=== PATIENT | female | born 1965 | race Caucasian/White ===

== ENCOUNTER 2017-03-11 13:53 | Emergency (ER) | payer MEDICAID ==
[2017-03-11 19:34] VITALS: BMI 22.8
--- NOTE | 2017-03-11 19:38 | ED PDOC ---
Upper Extremity Pain/Injury Time Seen by Provider: 03/11/17 14:00 Chief Complaint (Provider): Finger pain History Per: Patient History/Exam Limitations: no limitations Onset/Duration Of Symptoms: Days (2) Current Symptoms Are (Timing): Still Present Quality: "Pain" Additional Complaint(s): Shar Phan is a 51 y/o female presenting to the ER on 03/11/2017 with complaints of pain in her right finger onset 2 days. Patient states she was walking down a flight of stairs when she hit her finger on a guardrail. Reports exacerbation of pain since onset, prompting medical evaluation today. Pain was initially localized in the fifth digit but has radiated to her elbow. She did not take any pain medications prior to arrival. Past Medical History Reviewed: Historical Data, Nursing Documentation, Vital Signs - Medical History PMH: No Chronic Diseases - Surgical History Surgical History: No Surg Hx - Family History Family History: States: Unknown Family Hx - Home Medications Home Medications: Ambulatory Orders Medication Instructions Recorded Azithromycin [Zithromax] 250 mg PO DAILY #6 cap 09/29/14 Codeine Phos/Phenyleph HCl/P 5 ml PO Q6H #100 syr 09/29/14 [Phenergan Vc W/Codeine 120 ml] Acetaminophen/Hydrocodone Bi 1 tab PO QID PRN #10 tab 11/27/14 [Vicodin 300 mg-5 mg] - Allergies Allergies/Adverse Reactions: Allergies Allergy/AdvReac Type Severity Reaction Status Date / Time No Known Allergies Allergy Verified 09/29/14 09:10 Review of Systems ROS Statement: Except As Marked, All Systems Reviewed And Found Negative Musculoskeletal: Positive for: Hand Pain ((+) left finger ) Neurological: Negative for: Weakness, Numbness Physical Exam - Reviewed Nursing Documentation Reviewed: Yes Vital Signs Reviewed: Yes - Physical Exam Appears: Positive for: Non-toxic, No Acute Distress Head Exam: Positive for: ATRAUMATIC, NORMOCEPHALIC Skin: Positive for: Normal Color, Warm, Dry Eye Exam: Positive for: Normal appearance, EOMI, PERRL Neck: Positive for: Normal Extremity: Positive for: Normal ROM, Tenderness (mild tenderness to 5th DIP upon palpation. ), Swelling (Mild swelling to PIP) Neurologic/Psych: Positive for: Alert, Oriented. Negative for: Motor/Sensory Deficits Medical Decision Making Medical Decision Makin:00 Initial Impression- Right finger sprain Initial Plan- * XR Right Hand * Re-assess 15:11 XR reviewed, shows no acute findings. Splint was applied to the right fifth digit. Pt will be discharged routinely. Ecnouraged to schedule follow-up with PMD within 1-2 days. Advised to return if condition persists or worsens. Condition is stable for discharge Clinical Impression- Finger sprain Documented by Dejah Quinones, acting as a scribe for Claudia Rothman PA-C All medical record entries made by the Scribe were at my direction and personally dictated by me. I have reviewed the chart and agree that the record accurately reflects my personal performance of the history, physical exam, medical decision making, and the department course for this patient. I have also personally directed, reviewed, and agree with the discharge instructions and disposition.
--- NOTE | 2017-03-12 08:10 | RAD ---
PROCEDURE: Right 5th finger dated 03/11/2017 HISTORY: COMPARISON: Prior study available for comparison FINDINGS: BONES: No evidence of acute displaced fracture nor dislocation. The osseous structures appear intact. No cortical destructive changes. JOINTS: There appears be mild narrowing of the DIP joint along the palm are joint space margin SOFT TISSUES: Normal. OTHER FINDINGS: None. IMPRESSION: No evidence of acute displaced fracture nor dislocation right 5th finger
== END 2017-03-11 19:34 | disposition home or self-care (01) ==
LOC: H.EDDOWN 13:53
DX: S63.616A Unspecified sprain of right little finger, initial encounter (principal); W22.8XXA Striking against or struck by other objects, initial encounter; Y93.9 Activity, unspecified; Y92.9 Unspecified place or not applicable

== ENCOUNTER 2017-04-19 14:34 | Emergency (ER) | payer MEDICAID ==
[2017-04-19 14:34] VITALS: BMI 22.8
[2017-04-19 14:40] VITALS: RESP 20; TEMP 99; O2SAT 100
--- NOTE | 2017-04-19 14:58 | ED PDOC ---
Lower Extremity Pain/Injury Time Seen by Provider: 04/19/17 14:45 Chief Complaint (Nursing): Abnormal Skin Integrity Chief Complaint (Provider): Wound check History Per: Patient History/Exam Limitations: no limitations Onset/Duration Of Symptoms: Days (1x) Current Symptoms Are (Timing): Still Present Severity: Moderate Additional Complaint(s): 51 year old female with no pertinent medical history presents to the ED with complaints of a right lower extremity injury that occurred last night (20x hours prior to arrival). She reports that she was outside, and a piece of glass from the garbage cut her right thigh. She reports that she did not present to the ED after the injury because she did not want to come alone, but today the area "feels hot" and notes pain along wound. Patient denies having fevers, chills, and any other medical complaints. Patient's tetanus immunization is up to date. PMD: not provided. Past Medical History Reviewed: Historical Data, Nursing Documentation, Vital Signs Vital Signs: Last Vital Signs Temp 99 F 04/19/17 14:38 Pulse 92 H 04/19/17 14:38 Resp 20 04/19/17 14:38 BP 126/93 H 04/19/17 14:38 Pulse Ox 100 04/19/17 14:38 - Medical History PMH: No Chronic Diseases - Surgical History Surgical History: No Surg Hx - Family History Family History: States: Unknown Family Hx - Social History Alcohol: None Drugs: Denies - Immunization History Hx Tetanus Toxoid Vaccination: Yes (january 2017) - Home Medications Home Medications: Ambulatory Orders Medication Instructions Recorded Azithromycin [Zithromax] 250 mg PO DAILY #6 cap 09/29/14 Codeine Phos/Phenyleph HCl/P 5 ml PO Q6H #100 syr 09/29/14 [Phenergan Vc W/Codeine 120 ml] Acetaminophen/Hydrocodone Bi 1 tab PO QID PRN #10 tab 11/27/14 [Vicodin 300 mg-5 mg] Bacitracin Ointment [Bacitracin] 0.5 gm TOP BID #1 tube 04/19/17 Cephalexin [Keflex] 500 mg PO QID #20 cap 04/19/17 Ibuprofen [Motrin] 600 mg PO Q8 PRN #15 tab 04/19/17 - Allergies Allergies/Adverse Reactions: Allergies Allergy/AdvReac Type Severity Reaction Status Date / Time No Known Allergies Allergy Verified 09/29/14 09:10 Review of Systems Constitutional: Negative for: Fever, Chills Musculoskeletal: Positive for: Leg Pain (pain along wound on leg. patient states the area feels "hot") Physical Exam - Reviewed Nursing Documentation Reviewed: Yes Vital Signs Reviewed: Yes - Physical Exam Appears: Positive for: Well, Non-toxic, No Acute Distress Head Exam: Positive for: ATRAUMATIC, NORMOCEPHALIC Skin: Positive for: Normal Color, Warm, Dry Cardiovascular/Chest: Positive for: Regular Rate, Rhythm Respiratory: Positive for: Normal Breath Sounds. Negative for: Respiratory Distress Rectal: Positive for: Other (3cm superficial laceration on right anterior thigh. no signs of infection.) Neurologic/Psych: Positive for: Alert, Oriented (3x) - ECG O2 Sat by Pulse Oximetry: 100 (RA) Pulse Ox Interpretation: Normal Medical Decision Making Medical Decision Makin:45 Initial impression: 51 year old female with a right lower extremity injury. Plan: * wound cleaned with betadine and flushed with sterile water * Steri strips placed for wound approximation * keflex 500mg PO * advised patient to follow up with PMD in 2x days Scribe Attestation: Documented by Shabana Ferraro, acting as a scribe for Dennise Huerta PA-C. Provider Scribe Attestation: All medical record entries made by the Scribe were at my direction and personally dictated by me. I have reviewed the chart and agree that the record accurately reflects my personal performance of the history, physical exam, medical decision making, and the department course for this patient. I have also personally directed, reviewed, and agree with the discharge instructions and disposition. Disposition - Clinical Impression Clinical Impression: Laceration - Patient ED Disposition Is Patient to be Admitted: No - Disposition Referrals: [facility] [Outside] Disposition: Routine/Home Disposition Time: 15:41 Condition: FAIR Additional Instructions: FOLLOW UP WITH YOUR PMD OR ED IN 2 DAYS FOR WOUND EVALUATION. Prescriptions: Bacitracin Ointment [Bacitracin] 0.5 gm TOP BID #1 tube Cephalexin [Keflex] 500 mg PO QID #20 cap Ibuprofen [Motrin] 600 mg PO Q8 PRN #15 tab PRN Reason: Pain, Severe (8-10) Instructions: Acute Wound Care (ED), Steristrips (ED)
[2017-04-19 15:41] VITALS: BP 124/86; PULSE 83
== END 2017-04-19 15:41 | disposition home or self-care (01) ==
LOC: H.ER 14:34
DX: S81.801A Unspecified open wound, right lower leg, initial encounter (principal); W25.XXXA Contact with sharp glass, initial encounter

== ENCOUNTER 2017-04-21 14:11 | Emergency (ER) | payer MEDICAID ==
[2017-04-21 14:12] VITALS: BMI 22.8
[2017-04-21 14:23] VITALS: BP 103/52; PULSE 86; RESP 18; TEMP 98.2; O2SAT 100
--- NOTE | 2017-04-21 16:04 | ED PDOC ---
HPI: Wound Care - HPI Time Seen by Provider: 04/21/17 15:16 Chief Complaint (Nursing): Wound Check Chief Complaint (Provider): Wound Check History Per: Patient Exam Limitations: no limitations Additional Complaint(s): Shar Phan is a 51 y/o female presenting to the ER on 04/21/2017 for a wound check. Patient reports she had a piece of glass in her right upper thigh on 04/18 , and was evaluated on 04/19. When she was being evaluated, she reported the area felt warm, so she was started on Keflex. At the time, she stated improvement in pain. Offers no other medical or physical complaints at this time. Past Medical History Reviewed: Historical Data, Nursing Documentation, Vital Signs Vital Signs: Last Vital Signs Temp 98.2 F 04/21/17 14:21 Pulse 86 04/21/17 14:21 Resp 18 04/21/17 14:21 BP 103/52 L 04/21/17 14:21 Pulse Ox 100 04/21/17 14:21 - Medical History PMH: Gastritis - Surgical History Surgical History: No Surg Hx - Family History Family History: States: Unknown Family Hx - Social History Current smoker - smoking cessation education provided: No Alcohol: None Drugs: Denies - Immunization History Hx Tetanus Toxoid Vaccination: Yes (january 2017) - Home Medications Home Medications: Ambulatory Orders Medication Instructions Recorded Azithromycin [Zithromax] 250 mg PO DAILY #6 cap 09/29/14 Codeine Phos/Phenyleph HCl/P 5 ml PO Q6H #100 syr 09/29/14 [Phenergan Vc W/Codeine 120 ml] Acetaminophen/Hydrocodone Bi 1 tab PO QID PRN #10 tab 11/27/14 [Vicodin 300 mg-5 mg] Bacitracin Ointment [Bacitracin] 0.5 gm TOP BID #1 tube 04/19/17 Cephalexin [Keflex] 500 mg PO QID #20 cap 04/19/17 Ibuprofen [Motrin] 600 mg PO Q8 PRN #15 tab 04/19/17 Acetaminophen [Pain Reliever] 1,000 mg PO Q4H PRN #20 tablet 04/21/17 - Allergies Allergies/Adverse Reactions: Allergies Allergy/AdvReac Type Severity Reaction Status Date / Time No Known Allergies Allergy Verified 09/29/14 09:10 Review of Systems ROS Statement: Except As Marked, All Systems Reviewed And Found Negative Constitutional: Negative for: Fever Neurological: Negative for: Weakness, Numbness Physical Exam - Reviewed Nursing Documentation Reviewed: Yes (well healing superficial lac to mid right thigh lateral no surrounding erythema, non-tender, no induration upon palpation , steri strips in place) Vital Signs Reviewed: Yes - Physical Exam Appears: Positive for: Non-toxic, No Acute Distress Head Exam: Positive for: ATRAUMATIC, NORMOCEPHALIC Skin: Positive for: Normal Color. Negative for: Rash Eye Exam: Positive for: Normal appearance Neck: Positive for: Normal Extremity: Positive for: Normal ROM, Other. Negative for: Tenderness, Deformity , Swelling Neurologic/Psych: Positive for: Alert, Oriented. Negative for: Motor/Sensory Deficits - ECG O2 Sat by Pulse Oximetry: 100 Medical Decision Making Medical Decision Makin:16 Initial Impression- 51 y/o female with wound check Pt will be discharged routinely with Rx for Acetaminophen. Condition is stable for discharge. Documented by Dejah Quinones, acting as a scribe for Claudia Rothman PA-C All medical record entries made by the Scribe were at my direction and personally dictated by me. I have reviewed the chart and agree that the record accurately reflects my personal performance of the history, physical exam, medical decision making, and the department course for this patient. I have also personally directed, reviewed, and agree with the discharge instructions and disposition. Disposition - Clinical Impression Clinical Impression: Encounter for wound re-check - Disposition Disposition: Routine/Home Disposition Time: 16:00 Prescriptions: Acetaminophen [Pain Reliever] 1,000 mg PO Q4H PRN #20 tablet PRN Reason: pain Instructions: Cephalexin (By mouth)
== END 2017-04-21 17:13 | disposition home or self-care (01) ==
LOC: H.ER 14:11
DX: Z48.00 Encounter for change or removal of nonsurgical wound dressing (principal)